=== PATIENT | female | born 1975 | race Caucasian/White ===

== ENCOUNTER 2019-05-09 12:29 | Emergency (ER) | payer MEDICAID ==
[~2019-05-09] VITALS: Ht 152.4 cm; Wt 78.4 kg
[~2019-05-09 12:29] MED LIST: NITR-58 PO
[2019-05-09 12:51] VITALS: Ht 152.4 cm; Wt 78.4 kg
--- NOTE | 2019-05-09 14:36 | ERD ---
ER Documentation Chief Complaint Chief Complaint painful urination - LMP 03/14/19 HPI 43-year-old female presenting with dysuria for 3 days. Patient has no blood in her urine. She is approximately 8 weeks without any complication. She denies any back pain or fevers. Medical history is hypertension. Surgical History . Social history denies ROS All systems reviewed and are negative except as per history of present illness. Medications Home Meds Active Scripts Nitrofurantoin Monohyd Macrocr* (Macrobid*) 100 Mg Capsr, 100 MG PO BID for 14 Days, CAP Prov:DEMOND GIRON PA-C 05/09/19 FmHx Family History: No diabetes, No coronary disease, No other Physical Exam Vitals Vital Signs Date Temp Pulse Resp B/P (MAP) Pulse Ox O2 O2 Flow FiO2 Time Delivery Rate 05/09/19 100.0 86 20 163/102 100 12:51 (122) Physical Exam GENERAL: The patient is well-appearing, well-nourished, in no acute distress HEENT: Atraumatic. Conjunctivae are pink. Pupils equal, round, and reactive to light. There is no scleral icterus. Tympanic membranes clear bilaterally. Oropharynx clear. CHEST: Clear to auscultation bilaterally. There are no rales, wheezes or rh onchi. HEART: Regular rate and rhythm. No murmurs, clicks, rubs or gallops. ABDOMEN:Soft, nontender and nondistended. Good bowel sounds. No rebound or guarding. No gross peritonitis. No gross organomegaly or masses. Results 24 hrs Laboratory Tests Test 05/09/19 13:50 Urine Color YELLOW Urine Clarity CLEAR Urine pH 6.0 Urine Specific [place] 1.008 Urine Ketones TRACE mg/dL Urine Nitrite NEGATIVE mg/dL Urine Bilirubin NEGATIVE mg/dL Urine Urobilinogen NEGATIVE mg/dL Urine Leukocyte Esterase NEGATIVE Sasha/ul Urine Hemoglobin NEGATIVE mg/dL Urine Glucose NEGATIVE mg/dL Urine Total Protein NEGATIVE mg/dl Procedures/MDM ER course urinalysis negative however patient symptomatic so we will treat with antibiotics. MDM: 43-year-old female presenting with dysuria. Patient is symptomatic so we will treat with antibiotics. I have low suspicion for acute abdominal emergency or complication with the . Patient does not have pelvic pain and no bleeding. I have low suspicion for other acute abdominal emergencies or pyelonephritis. She is discharged with supportive medications and told to follow-up with primary care within 1 to 2 days for close evaluation. Patient is told symptoms change or worsen to return immediately to the ER. All questions answered at discharge Departure Diagnosis: Primary Impression: Dysuria Condition: Stable Patient Instructions: Dysuria Referrals: COMMUNITY CLINICS YOU HAVE RECEIVED A MEDICAL SCREENING EXAM AND THE RESULTS INDICATE THAT YOU DO NOT HAVE A CONDITION THAT REQUIRES URGENT TREATMENT IN THE EMERGENCY DEPARTMENT. FURTHER EVALUATION AND TREATMENT OF YOUR CONDITION CAN WAIT UNTIL YOU ARE SEEN IN YOUR DOCTORS OFFICE WITHIN THE NEXT 1-2 DAYS. IT IS YOUR RESPONSIBILITY TO MAKE AN APPOINTMENT FOR FOLOW-UP CARE. IF YOU HAVE A PRIMARY DOCTOR --you should call your primary doctor and schedule an appointment IF YOU DO NOT HAVE A PRIMARY DOCTOR YOU CAN CALL OUR PHYSICIAN REFERRAL HOTLINE AT IF YOU CAN NOT AFFORD TO SEE A PHYSICIAN YOU CAN CHOSE FROM THE FOLLOWING [facility] [id number] [facility] [address] [facility] [facility] [address] [facility] [address] [facility] [address] [facility]. [facility]. [address] Additional Instructions: FOLLOW UP WITH YOUR PRIMARY CARE PHYSICIAN TOMORROW.Return to this facility if you are not improving as expected. DEMOND GIRON PA-C May 09, 2019 14:36
[2019-05-09 14:43] VITALS: BP 143/81; PULSE 79; RESP 20
== END 2019-05-09 14:32 | disposition home or self-care (01) ==
LOC: FTE 12:29
DX: O26.891 Other specified pregnancy related conditions, first trimester (principal); R30.0 Dysuria; O10.011 Pre-existing essential hypertension complicating pregnancy, first trimester; Z3A.08 8 weeks gestation of pregnancy
CPT/HCPCS: 81003; 87086; Z7502; 99283